=== PATIENT | male | born 1960 | race Caucasian/White ===

== ENCOUNTER 2019-08-28 11:27 | Emergency (ER) | payer SELFPAY ==
[~2019-08-28] VITALS: Ht 172.7 cm; Wt 90.7 kg
[2019-08-28 11:30] VITALS: BP 176/110
--- NOTE | 2019-08-28 11:42 | NUR ---
AT BEDSIDE FOR EVAL.
--- NOTE | 2019-08-28 11:45 | NUR ---
CALLED RT FOR TREATMENT
--- NOTE | 2019-08-28 11:55 | NUR ---
FOOD SERVICE AIDE AT BEDSIDE FOR XRAY.
[2019-08-28] MEDS ORDERED: ALBUTEROL FS 2.5 MG/3 ML VIAL.NEB ONE (11:57)
[2019-08-28] MEDS ORDERED: IPRATROPIUM NEB FS 0.5 MG/2.5 ML AMPUL.NEB ONE (11:57)
--- NOTE | 2019-08-28 11:58 | NUR ---
RT AT BEDSIDE FOR BREATHING TREATMENT.
[2019-08-28] MEDS ORDERED: ALBUTEROL FS 2.5 MG/3 ML VIAL.NEB NEB ONE (12:00)
[2019-08-28] MEDS ORDERED: IPRATROPIUM NEB FS 0.5 MG/2.5 ML AMPUL.NEB NEB ONE (12:00)
--- NOTE | 2019-08-28 12:24 | NUR ---
Patient discharged to home in stable condition. Written and verbal after care instructions given. Patient verbalizes understanding of instruction.
== END 2019-08-28 12:25 | disposition home or self-care (01) ==
LOC: ER 11:29
DX: J20.9 Acute bronchitis, unspecified (principal); I10 Essential (primary) hypertension
CPT/HCPCS: 71045-TC